=== PATIENT | male | born 1950 ===

== ENCOUNTER 2016-10-31 08:17 | Emergency (ER) | payer MEDICAID, OTHER ==
[2016-10-31 08:18] VITALS: BMI 25.9
[2016-10-31 08:39] VITALS: PULSE 64; RESP 18; O2SAT 96
--- NOTE | 2016-10-31 09:53 | ED PDOC ---
HPI: Back Time Seen by Provider: 10/31/16 09:27 Chief Complaint (Nursing): Back Pain Additional Complaint(s): no weakness, numbness, tingling. no bladder or bowel incotinence. saw patient ambulate into ED Past Medical History Vital Signs: Last Vital Signs Temp 97.7 F 10/31/16 08:35 Pulse 64 10/31/16 08:35 Resp 18 10/31/16 08:35 BP 147/78 10/31/16 08:35 Pulse Ox 96 10/31/16 08:35 - Medical History PMH: Back Problems, Gastritis, HTN (denies, but documented in previous charts) Denies: Chronic Kidney Disease - Family History Family History: States: Unknown Family Hx - Home Medications Home Medications: Ambulatory Orders Medication Instructions Recorded No Known Home Med 10/31/16 - Allergies Allergies/Adverse Reactions: Allergies Allergy/AdvReac Type Severity Reaction Status Date / Time No Known Allergies Allergy Verified 10/31/16 08:34 - ECG O2 Sat by Pulse Oximetry: 96
--- NOTE | 2016-10-31 09:59 | ED PDOC ---
HPI: General Adult Time Seen by Provider: 10/31/16 09:27 Chief Complaint (Nursing): Back Pain Chief Complaint (Provider): coughing History Per: Patient History/Exam Limitations: no limitations Additional Complaint(s): 65yo male w/ Hx asthma comes to the ED complaining of bilateral rib pain, cough with clear sputum and nasal congestion x 1 month. He denies chest pain or shortness of breath. He reports that he has been meaning to see a doctor but couldnt get off work. He reports that he came today because he did not have to go to work. Denies abdominal pain. Past Medical History Reviewed: Historical Data, Nursing Documentation, Vital Signs Vital Signs: Last Vital Signs Temp 98 F 10/31/16 16:02 Pulse 64 10/31/16 16:02 Resp 18 10/31/16 16:02 BP 144/78 10/31/16 16:02 Pulse Ox 96 10/31/16 16:02 - Medical History PMH: Back Problems, Gastritis, HTN (denies, but documented in previous charts) Denies: Chronic Kidney Disease - Surgical History Surgical History: No Surg Hx - Family History Family History: States: Unknown Family Hx - Social History Current smoker - smoking cessation education provided: No - Home Medications Home Medications: Ambulatory Orders Medication Instructions Recorded Azithromycin 250 mg PO DAILY #6 tablet 10/31/16 - Allergies Allergies/Adverse Reactions: Allergies Allergy/AdvReac Type Severity Reaction Status Date / Time No Known Allergies Allergy Verified 10/31/16 08:34 Review of Systems ROS Statement: Except As Marked, All Systems Reviewed And Found Negative Constitutional: Negative for: Fever, Chills, Weakness, Malaise, Weight loss Cardiovascular: Negative for: Chest Pain, Palpitations, Orthopnea, Paroxysmal Noc. Dyspnea Respiratory: Positive for: Cough, Sputum (clear). Negative for: Shortness of Breath, SOB with Exertion Gastrointestinal: Negative for: Nausea, Vomiting, Abdominal Pain, Diarrhea, Constipation Genitourinary Male: Negative for: Dysuria Skin: Negative for: Rash Neurological: Negative for: Weakness, Numbness Physical Exam - Reviewed Nursing Documentation Reviewed: Yes Vital Signs Reviewed: Yes - Physical Exam Appears: Positive for: Well, Non-toxic, No Acute Distress Head Exam: Positive for: ATRAUMATIC, NORMAL INSPECTION, NORMOCEPHALIC Skin: Positive for: Warm, Dry Eye Exam: Positive for: EOMI, PERRL Neck: Positive for: Normal, Supple Cardiovascular/Chest: Positive for: Regular Rate, Rhythm Respiratory: Positive for: Wheezing (trace). Negative for: Rales, Rhonchi Gastrointestinal/Abdominal: Positive for: Soft. Negative for: Tenderness, Mass , Distended Back: Negative for: L CVA Tenderness, R CVA Tenderness, Vertebral Tenderness Extremity: Positive for: Normal ROM Neurologic/Psych: Positive for: Alert, Oriented - Laboratory Results Result Diagrams: 10/31/16 10:20 10/31/16 10:20 - ECG O2 Sat by Pulse Oximetry: 96 (RA) Pulse Ox Interpretation: Normal Medical Decision Making Medical Decision Makin: Patient has had uri symptoms x 1 month. Differential URI vs pneumonia vs ACS Plan: EKG CXR Labs Duoneb reassess EKG shows sinus bradycardia at 53bpm with LAD, unchanged from prior on 04/2016. 2:09PM Cxray negative. However, prior cxray showed lingula mass. Patient never had CT and I am concerned that patient's chronic symptoms may be caused by underlying pathology. 4:02 Trop x1 negative D-dimer negative CT Chest Impression: Scattered minimal bilateral lung nodules with minimal biapical pleural parenchymal fibrosis. Scattered thyroid nodule; correlate with thyroid ultrasound. With shot man, patient was made aware of abnormal CT and need to follow-up with PMD. Due to persistent symptoms, will dc with zpack. Wheezing is now resolved and peak flow has improved. Disposition - Clinical Impression Clinical Impression: Upper respiratory infection, Lung nodule, Thyroid nodule - Disposition Disposition: Routine/Home Disposition Time: 15:53 Condition: GOOD Additional Instructions: Take full course of antibiotics. Return to ED if condition worsens. Follow-up with PMD within 2 days for further evaluate of thyroid and lung nodules. Prescriptions: Azithromycin 250 mg PO DAILY #6 tablet Instructions: Upper Respiratory Infection (ED), Thyroid Nodules (ED), Pulmonary Nodules (ED) Forms: [facility] ED School/Work Excuse Print Language: [place] Additional Comments - Additional Comments Additional Comments: Scribe Attestation Documented by Farhat García acting as a scribe for Angela Sparks MD. Provider Attestation: All medical record entries made by the Scribe were at my direction and personally dictated by me. I have reviewed the chart and agree that the record accurately reflects my personal performance of the history, physical exam, medical decision making, and the department course for this patient. I have also personally directed, reviewed, and agree with the discharge instructions and disposition.
[2016-10-31] MEDS ORDERED: Albuterol-Ipratrop 3 mg / 0.5 (3 ml) UD INH STA ×2 (10:05→12:30)
[2016-10-31] MEDS ORDERED: Albuterol-Ipratrop 3 mg / 0.5 (3 ml) UD ONE ×2 (10:31→13:19)
[2016-10-31 10:43] LABS: BASO % 0.7 % (0.0-2.0); EOS # 0.3 K/uL (0.0-0.7); LYMPH # 1.2 K/uL (1.0-4.3); LYMPH % 20.4 % (20.0-40.0); MEAN CELL VOLUME 91.1 fl (80.0-94.0); MEAN CORPUSCULAR HGB CONC 34.1 g/dL (33.0-37.0); MONO # 0.4 K/uL (0.0-0.8); MONO % 7.6 % (0.0-10.0); NEUT # 3.8 K/uL (1.8-7.0); NEUT % 65.3 % (50.0-75.0); NRBC % 0.1 % (0.0-0.0); RED CELL DISTRIBUTION WIDTH 13.5 % (11.5-14.5); WHITE BLOOD COUNT 5.8 K/uL (4.8-10.8)
[2016-10-31 11:11] LABS: ALB/GLOB RATIO 1.2 (1.0-2.1); ALKALINE PHOSPHATASE 71 U/L (38-126); ALT/SGPT 37 U/L (21-72); AST/SGOT 29 U/L (17-59); BILIRUBIN,TOTAL 0.4 mg/dl (0.2-1.3); BLOOD UREA NITROGEN 9 mg/dl (9-20); CALCIUM 9.5 mg/dL (8.4-10.2); CARBON DIOXIDE 26 mmol/L (22-30); CHLORIDE 104 mmol/L (98-107); GFR AFRICAN-AMERICAN > 60; GLUCOSE,RANDOM 93 mg/dL (75-110); POTASSIUM 4.5 MMOL/L (3.6-5.0); SODIUM 142 mmol/l (132-148); TOTAL PROTEIN 8.2 G/DL (6.3-8.2)
--- NOTE | 2016-10-31 13:58 | RAD ---
HISTORY: chest pain COMPARISON: Chest x-ray performed 06/29/15 TECHNIQUE: Chest PA and lateral FINDINGS: LUNGS: No focal consolidation. Please note that chest x-ray has limited sensitivity for the detection of pulmonary masses. PLEURA: No significant pleural effusion identified. No definite pneumothorax . CARDIOVASCULAR: The cardiomediastinal silhouette appears within normal limits of size. OSSEOUS STRUCTURES: Mild degenerative changes. VISUALIZED UPPER ABDOMEN: Unremarkable. OTHER FINDINGS: None. IMPRESSION: No focal consolidation, significant pleural effusion, or definite pneumothorax identified.
[2016-10-31] MEDS ORDERED: Sodium Chloride 0.9% 50 ML IV ONE (14:20)
[2016-10-31] MEDS ORDERED: Iohexol 300 100 ML IJ ONE (14:20)
--- NOTE | 2016-10-31 15:25 | CT ---
PROCEDURE: CT Chest with contrast HISTORY: shortness of breath, hx of lung mass COMPARISON: None. TECHNIQUE: Contiguous axial images were obtained through the chest with intravenous contrast enhancement. Sagittal and coronal reconstructions were performed. IV contrast: 100 cc of Omnipaque 320 Radiation dose (DLP): 375 mGy-cm. This CT exam was performed using one or more of the following dose reduction techniques: Automated exposure control, adjustment of the mA and/or kV according to patient size, and/or use of iterative reconstruction technique. FINDINGS: LUNGS: Minimal biapical pleural parenchymal fibrotic change. 2 millimeter nodule in the right upper lobe. 3 millimeter nodule in the right lower lobe, lateral segment. 3 millimeter nodule in the left lower lobe. MEDIASTINUM: Unremarkable thoracic aorta. No aneurysm or dissection. Normal sized heart. Main pulmonary artery unremarkable. No vascular congestion. No lymphadenopathy. PLEURA: No pleural fluid. No pneumothorax. BONES: No fracture. No destructive lesion. UPPER ABDOMEN: Grossly unremarkable. OTHER FINDINGS: 13 millimeter hypodense nodule in the right lobe of the thyroid gland as well as a 3 millimeter nodule in the left lobe. Additional smaller nodules present.. IMPRESSION: Scattered minimal bilateral lung nodules with minimal biapical pleural parenchymal fibrosis. Scattered thyroid nodule; correlate with thyroid ultrasound.
[2016-10-31 16:03] VITALS: BP 144/78; TEMP 98
--- NOTE | 2016-11-01 02:11 | CARD ---
APPROVED REPORT EKG Measurement Heart [id number] <Conclusion> Sinus bradycardia Left axis deviation Anterior infarct, age undetermined Abnormal ECG
== END 2016-10-31 16:30 | disposition home or self-care (01) ==
LOC: H.ER 08:17
DX: J06.9 Acute upper respiratory infection, unspecified (principal); M54.9 Dorsalgia, unspecified; R07.82 Intercostal pain; I10 Essential (primary) hypertension; R00.1 Bradycardia, unspecified; E04.1 Nontoxic single thyroid nodule; R91.1 Solitary pulmonary nodule
CPT/HCPCS: 71020; 71260; 80053; 82553; 84484; 85025; 85378; 93005; 99283; Q9967